=== PATIENT | female | born 1935 | race Caucasian/White ===

== ENCOUNTER 2022-04-05 13:01 | Outpatient (CLI) | payer MEDICARE, OTHER | END 2022-04-05 13:02 | disposition home or self-care (01) | LOC: CSHLAB 13:01 | PROVIDERS: ATTEND Family Medicine | DX: Z20.822 Contact with and (suspected) exposure to COVID-19 (principal) | CPT/HCPCS: 87811 ==

== ENCOUNTER 2022-04-06 10:09 | Outpatient (CLI) | payer MEDICARE | END 2022-04-06 10:10 | disposition home or self-care (01) | LOC: CSHRAD 10:09 | PROVIDERS: ATTEND Family Medicine | DX: R13.10 Dysphagia, unspecified (principal); R63.30 Feeding difficulties, unspecified; I67.89 Other cerebrovascular disease | CPT/HCPCS: 74230 ==

== ENCOUNTER 2022-06-21 13:33 | Outpatient (CLI) | payer MEDICARE, OTHER | END 2022-06-21 13:34 | disposition home or self-care (01) | LOC: CSHMRI 13:33 | PROVIDERS: ATTEND Family Medicine | DX: M84.48XA Pathological fracture, other site, initial encounter for fracture (principal); R93.7 Abnormal findings on diagnostic imaging of other parts of musculoskeletal system; G95.89 Other specified diseases of spinal cord | CPT/HCPCS: 72148 ==

== ENCOUNTER 2022-07-11 08:05 | Outpatient (CLI) | payer MEDICARE ==
[2022-07-11] MEDS ORDERED: Iopamidol 300 61% 100 ML VIAL FS ONE (10:48)
== END 2022-07-11 08:06 | disposition home or self-care (01) ==
LOC: CSHCT 08:05
PROVIDERS: ATTEND Family Medicine
DX: C79.51 Secondary malignant neoplasm of bone (principal)
CPT/HCPCS: 71260; 74177; 82565

== ENCOUNTER 2022-12-02 18:30 | Emergency (ER) | payer MEDICARE, OTHER ==
[2022-12-02 19:30] LABS: #Monocytes 0.5 10x3/uL (0.0-1.1); #Neutrophils 7.2 10x3/uL (1.5-8.4); %Basophils 0.5 % (0.0-2.0); %Eosinophils 0.5 % (0.0-6.0); %Lymphocytes 7.8 % (18.0-47.0); %Monocytes 5.9 % (0.0-10.0); %Neutrophils 84.2 % (40.0-75.0); Hemoglobin 13.8 g/dL (12.0-15.5); Mean Corpuscular Hemoglobin 28.5 pg (27.0-33.0); Mean Corpuscular Volume 88.9 fl (81.6-98.3); Mean Platelet Volume 9.3 fl (7.4-10.4); Platelet Count 228 10x3/uL (150-450); RBC Distribution Width 17.5 % (11.5-14.5); Red Blood Cell (RBC) Count 4.85 10x6/uL (3.90-5.03); White Blood Cell (WBC) Count 8.5 10x3/uL (3.5-10.5)
[2022-12-02 19:36] LABS: ALT (SGPT) 35 U/L (8-55); AST (SGOT) 168 U/L (5-34); Albumin 3.7 g/dL (3.4-4.8); Alkaline Phosphatase 340 U/L (40-110); Anion Gap 23 mmol/L (10-20); BUN (Urea Nitrogen) 70 mg/dL (9.8-20.1); Bilirubin, Total 0.3 mg/dL (0.2-1.2); CK (CPK) 155 U/L (29-168); Calc. Creatinine Clearance 0 mL/min (70-130); Carbon Dioxide 14 mmol/L (23-31); Chloride 104 mmol/L (98-107); Estimated GFR 10; Glucose 139 mg/dL (83-110); Lipase 20 U/L (8-78); Potassium 3.9 mmol/L (3.5-5.1); Protein, Total 7.7 g/dL (5.8-8.1); Sodium 137 mmol/L (136-145)
[2022-12-02] MEDS ORDERED: Vancomycin 1 GM VIAL ONE (19:44)
[2022-12-02] MEDS ORDERED: Cefepime 2 GM VIAL ONE (19:44)
[2022-12-02] MEDS ORDERED: Dexamethasone 10 MG/ML VIAL ONE (19:44)
[2022-12-02 20:10] LABS: Bilirubin Neg (Negative); Blood, Urine 25 (Negative); Clarity Cloudy (Clear); Glucose, Urine (Dipstick) Normal (Negative); Ketone, Urine Negative (Negative); Leukocyte Negative (Negative); Nitrite Negative (Negative); Protein, Urine (Dipstick) 100 mg/dl (Neg-Trace); Specific Gravity, Urine 1.015 (1.005-1.030); Urobilinogen Normal mg/dL (Less than 2)
[2022-12-02 20:27] LABS: Bacteria/HPF 1+ HPF (None Seen); RBC/HPF 0-3 HPF (0-3); Squamous Epithelial 0-3 HPF (0-3)
[2022-12-02 20:31] LABS: SARS-CoV-2 NAA Rapid Test DETECTED (NotDetected)
[2022-12-02 22:14] LABS: Lactic Acid 1.5 mmol/L (0.5-2.2)
== END 2022-12-02 22:55 | disposition short-term general hospital (02) ==
LOC: CSHERS 18:30
DX: U07.1 COVID-19 (principal); N17.9 Acute kidney failure, unspecified; I95.9 Hypotension, unspecified; E03.9 Hypothyroidism, unspecified; E78.00 Pure hypercholesterolemia, unspecified
CPT/HCPCS: 0240U; 71045; 80053; 82550; 83605; 83690; 83880; 84484; 85025; 87040; 87086; 93005; 36415; 81003; 81015; 82274; J0692; J1100; J3370